=== PATIENT | male | born 1975 | race Two or more races ===

== ENCOUNTER 2022-03-02 07:08 | Outpatient (CLI) | payer OTHER | END 2022-03-02 07:12 | disposition home or self-care (01) | LOC: LAB 07:08 | PROVIDERS: ATTEND Internal Medicine | DX: D64.9 Anemia, unspecified (principal); E55.9 Vitamin D deficiency, unspecified; E11.9 Type 2 diabetes mellitus without complications; E78.9 Disorder of lipoprotein metabolism, unspecified; N39.0 Urinary tract infection, site not specified; E03.9 Hypothyroidism, unspecified ==

== ENCOUNTER 2022-10-04 09:56 | Emergency (ER) | payer OTHER ==
[~2022-10-04] VITALS: Ht 188 cm; Wt 104.3 kg
[2022-10-04] MEDS ORDERED: KETO10TA2 PO (13:22)
[2022-10-04] MEDS ORDERED: NORFLEX100MG PO (13:22)
== END 2022-10-04 13:51 | disposition home or self-care (01) ==
LOC: ER 09:56
DX: S59.802A Other specified injuries of left elbow, initial encounter (principal); W01.0XXA Fall on same level from slipping, tripping and stumbling without subsequent striking against object, initial encounter; Y93.02 Activity, running; Y92.413 State road as the place of occurrence of the external cause; S89.82XA Other specified injuries of left lower leg, initial encounter; S19.80XA Other specified injuries of unspecified part of neck, initial encounter; M50.322 Other cervical disc degeneration at C5-C6 level

== ENCOUNTER 2022-10-09 10:35 | Outpatient (CLI) | payer OTHER ==
[~2022-10-09 10:35] MED LIST: KETO10TA2 PO; NORFLEX100MG PO
== END 2022-10-09 10:40 | disposition home or self-care (01) ==
LOC: LAB 10:35
PROVIDERS: ATTEND Internal Medicine
DX: J06.9 Acute upper respiratory infection, unspecified (principal); E78.9 Disorder of lipoprotein metabolism, unspecified; D68.4 Acquired coagulation factor deficiency; E03.5 Myxedema coma; N41.9 Inflammatory disease of prostate, unspecified; N39.0 Urinary tract infection, site not specified; E11.9 Type 2 diabetes mellitus without complications; D51.8 Other vitamin B12 deficiency anemias; E55.9 Vitamin D deficiency, unspecified

== ENCOUNTER 2022-10-11 11:16 | Outpatient (CLI) | payer OTHER | END 2022-10-11 11:40 | disposition home or self-care (01) | LOC: MRI 11:16 | PROVIDERS: ATTEND Internal Medicine | DX: S14.109A Unspecified injury at unspecified level of cervical spinal cord, initial encounter (principal) | CPT/HCPCS: 72141 ==

== ENCOUNTER 2024-12-29 07:47 | Outpatient (CLI) | payer OTHER ==
[2024-12-29 08:42] LABS: BASO % 0.7 % (0.1-1.2); EOS # 0.22 (0.04-0.54); EOS % 3.2 % (0.7-7.0); LYMPH # 2.60 (1.18-3.74); LYMPH % 38.2 % (19.3-53.1); MEAN PLATELET VOLUME 11.50 fl (9.4-12.4); MONO # 0.46 (0.24-0.82); MONO % 6.8 % (4.7-12.5); NEUT # 3.46 (1.56-6.13); NEUT % 51.0 % (34.0-71.1); RED CELL DISTRIBUTION WIDTH 12.0 % (11.6-14.4)
[2024-12-29 09:49] LABS: ALT/SGPT 50.0 U/L (12-78); AST/SGOT 23.0 U/L (15-37); BILIRUBIN TOTAL 0.9 mg/dL (0.3-1.2); BILIRUBIN,CONJUGATED 0.2 mg/dL (0.0-0.2); BUN CREA RATIO 22.0 (7.0-25.0); CHOL HDL RATIO 3.1 (0-5.0); CREATININE SERUM 0.88 mg/dL (0.70-1.30); GFR 91.66; GLOBULINA 3.0 G/DL (2.4-3.5); GLUCOSE FASTING 87.0 mg/dL (65-100); HDL 42.0 mg/dl (40-60); LDL 74.0 mg/dl (0-130); OSMOLALITY SERUM 279.0 MOSM/KG (275-295); PROSTATIC SPECIFIC ANTIGEN 1.61 NG/ML (0.010-4.00); TSH 1.78 uIU/mL (0.358-3.74); VLDL 13.0 (0-39)
[2024-12-30 07:07] LABS: HEPATITIS B CORE IGG Negative (Negative); HEPATITIS C VIRUS ANTIBODY Non Reactive (Non Reactive)
[2024-12-30 09:11] LABS: HOMOCYSTEINE 11.9 umol/L (0.0-14.5); INSULIN LEVELS 11.3 uIU/mL (2.6-24.9)
[2024-12-31 17:08] LABS: APOLIPOPROTEINA A1 102 mg/dL (101-178); APOLIPOPROTEINA B 62 mg/dL (<90)
== END 2024-12-29 07:51 | disposition home or self-care (01) ==
LOC: LAB 07:47
PROVIDERS: ATTEND Physical Medicine & Rehabilitation
DX: E55.9 Vitamin D deficiency, unspecified (principal); R07.9 Chest pain, unspecified; Z00.01 Encounter for general adult medical examination with abnormal findings; E78.49 Other hyperlipidemia; R73.03 Prediabetes; N40.1 Benign prostatic hyperplasia with lower urinary tract symptoms; E03.9 Hypothyroidism, unspecified